=== PATIENT | female | born 1980 | race Two or more races ===

== ENCOUNTER 2016-10-11 09:48 | Emergency (ER) | payer OTHER ==
[2016-10-11 10:16] LABS: URINE BILIRUBIN NEGATIVE (NEGATIVE); URINE BLOOD NEGATIVE (NEGATIVE); URINE GLUCOSE (UA) NEGATIVE (NEGATIVE); URINE LEUKOCYTE ESTERASE NEGATIVE (NEGATIVE); URINE NITRITE NEGATIVE (NEGATIVE); URINE PROTEIN NEGATIVE (NEGATIVE); URINE UROBILINOGEN NORMAL (0-1 mg/dl)
[2016-10-11 10:17] LABS: URINE APPEARANCE CLEAR; URINE COLOR YELLOW
--- NOTE | 2016-10-11 11:01 | RAD ---
10/11/2016 10:57 AM CHEST - 2 VIEWS History: Chest pain for one month. Comparison: None Findings: Two views of the chest are obtained. The lungs are clear with out effusion or pneumothorax. The cardiomediastinal silhouette is unremarkable.. The osseous structures are intact.. IMPRESSION: No acute intrathoracic process.
[2016-10-11 11:13] LABS: ABSOLUTE NEUTROPHIL COUNT 3.8 K/mm3 (1.8-7.7); BASO % 0.4 % (0.2-1.0); EOS # 0.1 (0.0-0.5); EOS % 1.7 % (0.9-2.9); HEMOGLOBIN 14.5 gm/l (12.0-16.0); IMM NEUT% 0.4 % (0-1); LYMPH # 2.4 (1.0-4.8); LYMPH % 34.3 % (15-45); MEAN CORPUSCULAR HEMOGLOBIN 30.3 pg (27.0-31.0); MEAN CORPUSCULAR HGB CONC 33.7 g/dl (33.0-37.0); MEAN PLATELET VOLUME 9.1 fl (7.4-10.4); MONO # 0.6 (0.0-0.8); NEUT % 54.2 % (43-75); PLATELET COUNT 279 K/mm3 (130-400); RED CELL DISTRIBUTION WIDTH 11.9 % (11.5-14.5)
[2016-10-11 11:26] LABS: ALB/GLOB RATIO 1.6 (>1.0); ALBUMIN 4.6 gm/dL (3.5-5.7); CALCIUM 9.8 mg/dL (8.6-10.3)
[2016-10-11 11:41] LABS: HCG,QUALITATIVE URINE NEGATIVE
[2016-10-11] MEDS ORDERED: IBUPROFEN 600 MG TABLET ONE (11:43)
== END 2016-10-11 11:50 | disposition home or self-care (01) ==
LOC: ED 09:48
DX: R07.9 Chest pain, unspecified (principal); Z87.891 Personal history of nicotine dependence; Z82.49 Family history of ischemic heart disease and other diseases of the circulatory system
CPT/HCPCS: 83690; 81025; 85025; 80053; 81003; 84484; 71020; 99283; 93005; 99284; A9270